=== PATIENT | female | born 2000 | race Two or more races ===

== ENCOUNTER 2021-08-26 04:20 | Emergency (ER) | payer BC, OTHER ==
[~2021-08-26] VITALS: Ht 162.6 cm; Wt 44.0 kg
[2021-08-26] MEDS ORDERED: FAMOTIDINE 20 MG TAB PO ONE (05:30)
[2021-08-26] MEDS ORDERED: LIDOCAINE VISCOUS 2% 15ML UD PO ONE (05:30)
[2021-08-26] MEDS ORDERED: ONDANSETRON ODT 4 MG TAB PO ONE (05:30)
[2021-08-26] MEDS ORDERED: ALUM & MAG HYDROX-SIMETH LIQ(MAALOX) 30 ML PO ONE (05:30)
[2021-08-26 05:39] LABS: Basophils # (auto) 0 10 ^3/uL (0-0.2); Basophils % (auto) 0.4 % (0.0-2.0); Eosinophils # (auto) 0.1 10 ^3/uL (0-0.8); Monocytes # (auto) 0.3 10 ^3/uL (0-1.3); White Blood Cell 3.9 10^3/uL (4.4-10.8)
[2021-08-26 05:41] LABS: Eosinophils % (auto) 1.4 % (0.0-7.0); Hematocrit 29.2 % (36.0-46.0); Hemoglobin 9.8 g/dL (12.2-16.2); Lymphocytes # (auto) 1.3 10 ^3/uL (0.4-5.4); Lymphocytes % (auto) 32.4 % (10.0-50.0); Mean Corpuscular Hemoglobin 23.8 pg (28.0-32.0); Mean Corpuscular Hgb Conc. 33.4 g/dL (32.0-36.0); Mean Corpuscular Volume 71.3 fL (80.0-100.0); Monocytes % (auto) 8.5 % (0.0-12.0); Neutrophils # (auto) 2.2 10 ^3/uL (1.6-8.6); Neutrophils % (auto) 57.3 % (37.0-80.0); Red Cell Distribution Width 19.1 % (11.8-14.3)
[2021-08-26 05:55] LABS: Calcium 9.2 mg/dL (8.5-10.1); Potassium 3.5 mmol/L (3.5-5.1)
[2021-08-26 05:57] LABS: BUN/Creatinine Ratio 19.8
[2021-08-26 06:00] LABS: Bilirubin, Total 0.4 mg/dL (0.2-1.0); Total Protein 7.4 g/dL (6.4-8.2)
[2021-08-26 06:17] LABS: Urine Bacteria NONE SEEN /hpf (None Seen); Urine Blood Negative /uL (Negative); Urine Mucus FEW (None Seen); Urine Specific Gravity 1.031 (1.001-1.035); Urine WBC 1 /hpf (0 - 5)
[2021-08-26] MEDS ORDERED: NITR-87 PO (06:30)
[2021-08-26 07:30] VITALS: BP 110/71
== END 2021-08-26 08:50 | disposition home or self-care (01) ==
LOC: EDBD 04:20 → ER 04:20
DX: N39.0 Urinary tract infection, site not specified (principal); K59.00 Constipation, unspecified
CPT/HCPCS: 36415; 74176; 80053; 81001; 81025; 83690; 85025; 99284; Q0162